=== PATIENT | female | born 1965 | race African-American/Black ===

== ENCOUNTER 2016-09-27 21:19 | Emergency (ER) | payer SELFPAY ==
[~2016-09-27] VITALS: Ht 160 cm; Wt 82.0 kg
[2016-09-28 03:21] LABS: CLARITY URINE CLEAR (CLEAR); COLOR URINE YELLOW (YELLOW); GLUCOSE URINE NEGATIVE (NEGATIVE); KETONES URINE NEGATIVE (NEGATIVE); LEUKOCYTE ESTERASE URINE NEGATIVE (NEGATIVE); NITRITE URINE NEGATIVE (NEGATIVE); OCCULT BLOOD URINE NEGATIVE (NEGATIVE); PH URINE 6.5 (4.5-8.0); PROTEIN URINE NEGATIVE (NEGATIVE); SPECIFIC GRAVITY URINE 1.009 (1.005-1.030); UROBILINOGEN URINE 0.2 E.U./dL (0.2-1.0)
[2016-09-28 03:23] LABS: UCG SCREEN NEGATIVE
[2016-09-28] MEDS ORDERED: IBUPROFEN 800MG TABLET PO ONE (04:15)
[2016-09-28 04:57] VITALS: BP 119/69
== END 2016-09-28 05:02 | disposition home or self-care (01) ==
LOC: ER 21:19
DX: R35.0 Frequency of micturition (principal); Z85.3 Personal history of malignant neoplasm of breast
CPT/HCPCS: 81003; 81025; 82962; 99283; C1893; Z7610

== ENCOUNTER 2018-10-12 07:27 | Emergency (ER) | payer MEDICAID ==
[~2018-10-12] VITALS: Ht 160 cm; Wt 78.1 kg
[2018-10-12] MEDS ORDERED: KETOROLAC 60MG/2ML VIAL IM ONE (08:30)
[2018-10-12 09:13] VITALS: BP 157/72
== END 2018-10-12 09:16 | disposition home or self-care (01) ==
LOC: ER 07:27
DX: H92.02 Otalgia, left ear (principal); M54.32 Sciatica, left side; M79.18 Myalgia, other site; Z85.9 Personal history of malignant neoplasm, unspecified; Z98.890 Other specified postprocedural states
CPT/HCPCS: 96372; 99283; J1885